=== PATIENT | female | born 1955 | race Caucasian/White ===

== ENCOUNTER 2022-03-29 19:15 | Emergency (ER) | payer OTHER ==
[~2022-03-29] VITALS: Ht 167.6 cm; Wt 111.6 kg
[2022-03-29] MEDS ORDERED: HYDROCODONE-AC1 EAC1 PO (21:48)
[2022-03-29] MEDS ORDERED: ULTRAM50 MG PO (22:19)
== END 2022-03-29 23:36 | disposition home or self-care (01) ==
LOC: ED 19:15
DX: S42.292A Other displaced fracture of upper end of left humerus, initial encounter for closed fracture (principal); Z88.5 Allergy status to narcotic agent; W10.8XXA Fall (on) (from) other stairs and steps, initial encounter; Y93.01 Activity, walking, marching and hiking; Y92.89 Other specified places as the place of occurrence of the external cause; Y99.9 Unspecified external cause status